=== PATIENT | female | born 1955 | race Caucasian/White ===

== ENCOUNTER → 2016-05-22 | Outpatient (CLI) | payer OTHER, BC ==
[~2016-05-22] MED LIST: AMOXICILLIN875 MG PO; ASPIR 8181 MG PO; CELEBREX200 MG PO; COUMADIN5 MG PO; CYMBALTA60 MG PO; DITROPAN-DPS5 MG PO; GLUCOPHAGE-DPS500 MG PO; HUMALOG100 UNIT/1 SQ; INSULIN PUMP; ISOSORBIDE MONO30 MG PO; LANTUS100 UNITS/ SQ; LASIX DPS40 MG PO; LIPITOR DPS10 MG PO; LOVENOX DP80 MG/0.8 SQ; LYRICA75 MG PO; METANX CAPSULE1 EACH PO; PLAQUENIL DPS200 MG PO; PROTONIX40 MG PO; REQUIP1 MG PO; RESTORIL DPS30 MG PO; SYNTHROID112 MCG PO; TOPROL XL DPS25 MG PO; XARELTO20 MG PO; ZANTAC DPS150 MG PO
== END | disposition home or self-care (01) ==
LOC: RAD.S 15:33
DX: R51 Headache (principal); W19.XXXS Unspecified fall, sequela

== ENCOUNTER 2016-06-09 19:30 | Observation (INO) | payer BC ==
[~2016-06-09] VITALS: Ht 167.6 cm; Wt 97.7 kg
[~2016-06-09 19:30] MED LIST changes: -AMOXICILLIN875 MG PO; -INSULIN PUMP; -ISOSORBIDE MONO30 MG PO; -XARELTO20 MG PO
--- NOTE | 2016-06-10 22:41 | HP ---
ADMIT: 06/09/2016 RM/LOC: 522 [facility] MR#: [id number] [id number] [place], [place] [address] [address] [place] [address] History and Physical SEX: F AGE: 60 : 1955 DATE OF SERVICE: CHIEF COMPLAINT: Dizziness and syncope. HISTORY OF PRESENT ILLNESS: The patient is a 60-year-old female, normally sees Dr. Harrell in clinic, who reports an episode yesterday of dizziness. She was driving. It lasted about 30 seconds. Had to machine assembler for puller over. Reports multiple episodes recurrent up six times thereafter. She has had similar episodes up to nearly daily in the past but nothing as severe or persisted as she had yesterday. Accompanied by right-sided headache. Retro-orbital. No fevers chills, nausea, or vomiting recently. Does report she has not been eating and drinking as well for unclear reason. Otherwise, does admit that she has missed a dose or two of her Xarelto recently. Her blood sugars reports mostly in the 100s she states. She is on a pump now for the last year. Does not recall her last hemoglobin A1c. In regard to her dizziness, she had no other associated numbness, tingling, or weakness in extremities but does report episodes of "passing out." Apparently, had to be carried into the ER but by the time coming up to the floor, was walking and talking normally on her own. She reports she just feels a little bit lethargic and tired now. Does not recall the specifics of events. No seizure-like activity reported. Had been otherwise taking her medications as directed recently. PAST MEDICAL HISTORY: 1. Antiphospholipid antibody syndrome on Xarelto. 2. Diabetes type 2. 3. Bicuspid aortic valve. 4. History of skin cancer. 5. GERD. 6. History of PE. 7. Hyperlipidemia. 8. Hypertension. 9. Urinary incontinence. 10.Restless leg. 11.History of cholecystectomy. MEDICATIONS: She is on: 1. Aspirin. 2. Lipitor. 3. Celebrex. 4. Cymbalta. 5. Lasix. 6. Hydrocodone. 7. Plaquenil. 8. Humalog via pump. 9. Synthroid. 10.Lyrica. 11.Metformin. 12.Reglan. 13.Toprol. ADMIT: 06/09/2016 RM/LOC: [address] [facility] MR#: [id number] [address] [address] [place], [place] [address] History and Physical SEX: F AGE: 60 : 1955 14.Zantac. 15.Xarelto. 16.Requip. 17.Temazepam. FAMILY HISTORY: Significant for hypertension in her mother, diabetes in her mother. Heart disease in her mother and father. Diabetes in her father, sister, and brother. SOCIAL HISTORY: Does not smoke. 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 PHYSICAL EXAMINATION: VITAL SIGNS: Temperature 97.7, pulse 62, respiratory rate 14, blood pressure 119/66, O2 saturation 96% on room air. GENERAL: She is alert, oriented x3, and in no acute distress. Very pleasant. Very conversational. Interacts well. HEENT: Normocephalic, atraumatic. Pupils are equal bilaterally. No icterus. Dry mucous membranes. NECK: No lymphadenopathy. Soft and supple. Trachea midline. LUNGS: Clear to auscultation bilaterally. No wheezes, rales, or rhonchi. HEART: Regular rate and rhythm. No murmurs, rubs, or gallops. ABDOMEN: Soft, nontender, and nondistended. Bowel sounds present. EXTREMITIES: No cyanosis, clubbing, or edema. MUSCULOSKELETAL: A 5/5 strength in all 4 extremities. Normal range of motion. NEUROLOGICAL: No focal deficits noted. Cranial nerves II through XII grossly intact. No pronator drift. Normal rapid alternating movements in bilateral upper extremities. LABORATORY AND X-RAY DATA: Her creatinine is 1.2 with a baseline of 0.9. INR is 1.09. White count 4.6, hemoglobin 10.2, and platelets 221. Potassium 4.0, sodium 137, chloride . UA is negative. CRP is 0.4, sedimentation rate 77. TSH is not done but will be done. Hemoglobin A1c is not done, but will be done. ASSESSMENT: 1. Syncope. 2. Dizziness. ADMIT: 06/09/2016 RM/LOC: [address] [facility] MR#: [id number] [address] [place] [address] [id number] [place] [address] History and Physical SEX: F AGE: 60 : 1955 3. Dehydration. 4. Antiphospholipid antibody syndrome. 5. Diabetes type 2. PLAN: At this point in time, she had an MRI of her brain already. We will await final results. If negative like, we will be able to get her home. I think she is little bit dehydrated on top of her chronic issues. May be atypical migraine as well. We will start to recommend large amounts of hydration, cutting her Cymbalta from 120 down to 60 mg. Close followup in clinic this week. We will get an A1c and a TSH, which looks like they have been on for quite some time, and have close followup in the clinic. The patient is agreeable to the plan. Armaan Cassidy MD/ lou JOB #: [id number] CC: Evy Harrell MD, Attending Physician Evy Harrell MD, Family Physician
--- NOTE | 2016-06-11 00:03 | ER ---
ADMIT: 06/09/2016 RM/LOC: 522 [facility] MR#: [id number] [id number] [place], [place] [address] [address] [facility] [place] [address] Emergency Room Report SEX: F AGE: 60 : 1955 DATE: 06/09/2016 HISTORY OF PRESENT ILLNESS: A 60-year-old female, who was referred to the Emergency Department with very dramatic presentation. She says she was driving her car when she became dizzy and had double vision and passed out. She apparently called her daughter then continued drive to [employer] and then called her daughter again. Daughter came to the hotel, picked her up, said her mother was not making any sense. As she was driving her to the Emergency Department, passed out several times. Indeed the patient was total assist out of the car, total assist onto the gurney, very dramatic presentation. I think she had a headache. She was sick to her stomach, had abdominal pain and chest pain and blurry vision. PAST MEDICAL HISTORY: Significant for diabetes, hypertension, coronary artery disease, and history of pulmonary embolism. EMERGENCY ROOM COURSE: Emergent glucose was obtained, which was 231. Head scan was done, which was negative. Cardiac workup likewise was negative. Chest x-ray was unremarkable. The patient was being admitted under observation status for vertigo. Darinel Miguel MD/ lou JOB #: [id number] CC: Evy Harrell MD, Attending Physician Evy Harrell MD, Family Physician
[2016-06-11] MEDS ORDERED: ISOSORBIDE MONO30 MG PO (11:02)
[2016-06-11] MEDS ORDERED: INSULIN PUMP (11:03)
[2016-06-11] MEDS ORDERED: XARELTO20 MG PO (11:03)
[2016-06-11] MEDS ORDERED: AMOXICILLIN875 MG PO (11:04)
--- NOTE | 2016-06-12 16:51 | DS ---
ADMIT: 06/09/2016 RM/LOC: 522 [facility] MR#: [id number] [address] [address] [address] [facility] [place] [address] Discharge Summary SEX: F AGE: 60 : 1955 ADMISSION DATE: 06/09/2016 DISCHARGE DATE: 06/10/2016 CONSULTATIONS: None. FINAL DIAGNOSES: 1. Syncope. 2. Dizziness. 3. Dehydration. 4. Antiphospholipid antibody syndrome. 5. Severely poorly controlled hypothyroidism. 6. Diabetes type 2, on a pump with poor control. REASON FOR ADMISSION: The patient is a 61-year-old female who presented with some dizziness and some questionable syncopal episodes. Admitted for further stabilization. HOSPITAL COURSE: The patient was given IV fluids. MRI was overall negative for anything acute. Overall, felt improved. Discharged home with close followup in clinic. Notably upon discharge, her TSH was done off her prior blood and found to be 45. We lowered her Cymbalta dose. She will discuss increasing thyroid replacement and/or taking and adhering to thyroid replacement upon followup appointment. She will follow up with her primary care provider this week. DISCHARGE MEDICATIONS: Please see discharge APR. Armaan Cassidy MD/ vdg JOB #: [id number] CC: Evy Harrell MD, Attending Physician Evy Harrell MD, Family Physician
== END 2016-06-10 16:40 | disposition home or self-care (01) ==
LOC: ER 19:30 → 5MS 20:55
PROVIDERS: ADMIT Internal Medicine
DX: R55 Syncope and collapse (principal); E86.0 Dehydration; I10 Essential (primary) hypertension; R42 Dizziness and giddiness; E78.5 Hyperlipidemia, unspecified; E03.9 Hypothyroidism, unspecified; D68.61 Antiphospholipid syndrome; E11.9 Type 2 diabetes mellitus without complications; K21.9 Gastro-esophageal reflux disease without esophagitis; G25.81 Restless legs syndrome; Z86.711 Personal history of pulmonary embolism; Z85.828 Personal history of other malignant neoplasm of skin; Z90.49 Acquired absence of other specified parts of digestive tract; Z98.890 Other specified postprocedural states